=== PATIENT | male | born 1985 | race Caucasian/White ===

== ENCOUNTER 2017-06-05 20:24 | Emergency (ER) | payer OTHER ==
[2017-06-05] MEDS: AMOXICILLIN 500 MG CAP PO (21:55)
== END 2017-06-05 22:05 | disposition home or self-care (01) ==
LOC: M ED 20:24
DX: J02.0 Streptococcal pharyngitis (principal)
CPT/HCPCS: 87880

== ENCOUNTER → 2019-04-16 | Outpatient (REF) | payer OTHER ==
[~2019-04-16] MED LIST: AMOX500T PO
== END ==
LOC: M LAB REF 21:48
PROVIDERS: ATTEND Physician Assistant
DX: J02.9 Acute pharyngitis, unspecified (principal)

== ENCOUNTER → 2019-05-30 | Outpatient (REF) | payer OTHER ==
[2019-05-30 17:31] LABS: BASO # 0.1 10^3/uL (0.0-0.2); BASO % 0.7 % (0.0-1.0); EOS # 0.1 10^3/uL (0.0-0.5); HEMATOCRIT 48.3 % (42.0-52.0); HEMOGLOBIN 15.7 g/dl (13.5-17.5); LYMPH # 2.7 10^3/uL (1.5-5.0); LYMPH % 33.5 % (24.0-44.0); MEAN CORPUSCULAR HEMOGLOBIN 28.6 pg (27.0-33.0); MEAN CORPUSCULAR HGB CONC 32.5 g/dl (32.0-36.5); MONO # 0.6 10^3/uL (0.0-0.8); MONO % 7.4 % (0.0-5.0); NEUTROPHILS # 4.6 10^3/uL (1.5-8.5); NEUTROPHILS % 56.9 % (36.0-66.0); PLATELET COUNT, AUTOMATED 369 10^3/uL (150-450); RED BLOOD COUNT 5.49 10^6/uL (4.30-6.10); WHITE BLOOD COUNT 8.2 10^3/uL (4.0-10.0)
[2019-05-30 17:32] LABS: ALBUMIN 4.2 GM/DL (3.2-5.2); ALT/SGPT 91 U/L (12-78); BILIRUBIN,TOTAL 0.6 MG/DL (0.2-1.0); BLOOD UREA NITROGEN 12 MG/DL (7-18); CALCIUM LEVEL 9.2 MG/DL (8.5-10.1); CARBON DIOXIDE LEVEL 29 MEQ/L (21-32); CHLORIDE LEVEL 105 MEQ/L (98-107); CHOLESTEROL LEVEL 223 MG/DL (<200); CHOLESTEROL RISK RATIO 5.068 (<5); CREATININE FOR GFR 1.01 MG/DL (0.70-1.30); GLOMERULAR FILTRATION RATE > 60.0 (>60); GLUCOSE, FASTING 81 MG/DL (70-100); HDL CHOLESTEROL 44 MG/DL (>40); LDL CHOLESTEROL 150 MG/DL (<100); NON-HDL-C 179 MG/DL; POTASSIUM SERUM 4.8 MEQ/L (3.5-5.1); SODIUM LEVEL 137 MEQ/L (136-145); TOTAL PROTEIN 7.9 GM/DL (6.4-8.2); TRIGLYCERIDES LEVEL 143 MG/DL (<150)
== END ==
LOC: M LAB REF 16:54
PROVIDERS: ATTEND Family Medicine
DX: I10 Essential (primary) hypertension (principal)

== ENCOUNTER 2019-06-16 02:32 | Emergency (ER) | payer OTHER ==
[~2019-06-16] VITALS: Ht 165.1 cm; Wt 107.8 kg
[2019-06-16 02:32] VITALS: BP 142/94
[2019-06-16] MEDS ORDERED: ACET-683 PO (02:35)
[2019-06-16] MEDS ORDERED: TETRACAINE 0.5% OPHTH SOLN 4ML OS ONE (03:15)
[2019-06-16] MEDS ORDERED: KETOROLAC 0.5% OPHTH SOLN OS ONE (04:00)
[2019-06-16] MEDS ORDERED: TOBRAMYCIN 0.3% OPHTH SOLN 5 ML OS ONE (04:00)
[2019-06-16] MEDS ORDERED: ERYTHROMYCIN OPHTH OINT OS ONE (04:00)
== END 2019-06-16 04:11 | disposition home or self-care (01) ==
LOC: M ED 02:32
DX: H10.9 Unspecified conjunctivitis (principal)

== ENCOUNTER → 2019-11-03 | Outpatient (REF) | payer OTHER ==
[~2019-11-03] MED LIST changes: +ACET-683 PO; +NAPR-837 PO
== END ==
LOC: M LAB REF 20:00
PROVIDERS: ATTEND Physician Assistant Medical
DX: R07.0 Pain in throat (principal)

== ENCOUNTER 2019-11-27 16:49 | Emergency (ER) | payer OTHER ==
[~2019-11-27] VITALS: Ht 165.1 cm; Wt 106.2 kg
[~2019-11-27 16:49] MED LIST changes: -NAPR-837 PO
[2019-11-27 17:51] LABS: BASO # 0.1 10^3/uL (0.0-0.2); BASO % 0.5 % (0.0-1.0); EOS # 0.3 10^3/uL (0.0-0.5); EOS % 2.9 % (0.0-3.0); HEMOGLOBIN 14.8 g/dl (13.5-17.5); LYMPH # 3.3 10^3/uL (1.5-5.0); LYMPH % 31.6 % (24.0-44.0); MEAN CORPUSCULAR HEMOGLOBIN 28.8 pg (27.0-33.0); MEAN CORPUSCULAR HGB CONC 32.9 g/dl (32.0-36.5); MEAN CORPUSCULAR VOLUME 87.5 fl (80.0-96.0); MONO % 9.2 % (0.0-5.0); NEUTROPHILS # 5.7 10^3/uL (1.5-8.5); NEUTROPHILS % 55.2 % (36.0-66.0); PLATELET COUNT, AUTOMATED 341 10^3/uL (150-450); RED BLOOD COUNT 5.14 10^6/uL (4.30-6.10); WHITE BLOOD COUNT 10.4 10^3/uL (4.0-10.0)
[2019-11-27 18:13] LABS: ALT/SGPT 57 U/L (12-78); BILIRUBIN,DIRECT < 0.1 MG/DL (0.0-0.2); BILIRUBIN,TOTAL 0.4 MG/DL (0.2-1.0); BLOOD UREA NITROGEN 13 MG/DL (7-18); CALCIUM LEVEL 9.1 MG/DL (8.5-10.1); CARBON DIOXIDE LEVEL 26 MEQ/L (21-32); CHLORIDE LEVEL 107 MEQ/L (98-107); CREATININE FOR GFR 1.12 MG/DL (0.70-1.30); GLOMERULAR FILTRATION RATE > 60.0 (>60); GLUCOSE, FASTING 79 MG/DL (70-100); LIPASE 99 U/L (73-393); POTASSIUM SERUM 4.5 MEQ/L (3.5-5.1); SODIUM LEVEL 140 MEQ/L (136-145); TOTAL PROTEIN 7.3 GM/DL (6.4-8.2)
[2019-11-27] MEDS ORDERED: NAPR-837 PO (19:43)
[2019-11-27 19:48] VITALS: BP 137/89
== END 2019-11-27 19:50 | disposition home or self-care (01) ==
LOC: M ED 16:49
DX: S39.011A Strain of muscle, fascia and tendon of abdomen, initial encounter (principal); X58.XXXA Exposure to other specified factors, initial encounter; Y92.89 Other specified places as the place of occurrence of the external cause

== ENCOUNTER → 2020-04-07 | Outpatient (REF) | payer OTHER ==
[~2020-04-07] MED LIST changes: +NAPR-837 PO
[2020-04-07 18:11] LABS: BASO # 0.1 10^3/uL (0.0-0.2); BASO % 0.5 % (0.0-1.0); EOS # 0.1 10^3/uL (0.0-0.5); EOS % 0.7 % (0.0-3.0); HEMATOCRIT 45.3 % (42.0-52.0); HEMOGLOBIN 14.8 g/dl (13.5-17.5); LYMPH # 2.1 10^3/uL (1.5-5.0); LYMPH % 21.3 % (24.0-44.0); MEAN CORPUSCULAR HEMOGLOBIN 28.5 pg (27.0-33.0); MEAN CORPUSCULAR HGB CONC 32.7 g/dl (32.0-36.5); MEAN CORPUSCULAR VOLUME 87.1 fl (80.0-96.0); MONO # 0.6 10^3/uL (0.0-0.8); NEUTROPHILS # 6.8 10^3/uL (1.5-8.5); PLATELET COUNT, AUTOMATED 386 10^3/uL (150-450); WHITE BLOOD COUNT 9.7 10^3/uL (4.0-10.0)
[2020-04-07 18:14] LABS: ALBUMIN 4.1 GM/DL (3.2-5.2); ALT/SGPT 56 U/L (12-78); BILIRUBIN,TOTAL 0.5 MG/DL (0.2-1.0); BLOOD UREA NITROGEN 9 MG/DL (7-18); CALCIUM LEVEL 9.4 MG/DL (8.5-10.1); CARBON DIOXIDE LEVEL 30 MEQ/L (21-32); CHLORIDE LEVEL 105 MEQ/L (98-107); CREATININE FOR GFR 1.02 MG/DL (0.70-1.30); GLOMERULAR FILTRATION RATE > 60.0 (>60); GLUCOSE, FASTING 76 MG/DL (70-100); LIPASE 103 U/L (73-393); POTASSIUM SERUM 4.1 MEQ/L (3.5-5.1); SODIUM LEVEL 139 MEQ/L (136-145); TOTAL PROTEIN 7.7 GM/DL (6.4-8.2)
== END ==
LOC: M LAB REF 17:28
DX: R10.13 Epigastric pain (principal)

== ENCOUNTER 2020-05-09 06:50 | Emergency (ER) | payer OTHER ==
[~2020-05-09] VITALS: Ht 165.1 cm; Wt 110.4 kg
[2020-05-09] MEDS ORDERED: KETOROLAC TROMETHAMINE 10 MG TAB PO ONE (07:35)
[2020-05-09] MEDS ORDERED: ACETAMINOPHEN 500 MG TAB PO ONE (07:35)
[2020-05-09 08:20] VITALS: BP 142/102
== END 2020-05-09 08:40 | disposition home or self-care (01) ==
LOC: M ED 06:50
DX: K08.89 Other specified disorders of teeth and supporting structures (principal)

== ENCOUNTER 2020-06-11 20:50 | Emergency (ER) | payer OTHER ==
[~2020-06-11] VITALS: Ht 165.1 cm; Wt 108.4 kg
[2020-06-11] MEDS ORDERED: IBUP80TA (21:03)
[2020-06-11] MEDS ORDERED: AMOX875T (21:03)
[2020-06-11] MEDS ORDERED: BENZOCAINE 20% GEL 9GM TUBE (ANBESOL MAX STRENGTH) TOP ONE (22:20)
[2020-06-11] MEDS ORDERED: AUGM875T28 PO (22:21)
[2020-06-11 22:24] VITALS: BP 148/78
== END 2020-06-11 22:34 | disposition home or self-care (01) ==
LOC: M ED 20:50
DX: K04.7 Periapical abscess without sinus (principal)

== ENCOUNTER → 2020-08-06 | Outpatient (CLI) | payer OTHER ==
[~2020-08-06] MED LIST changes: +AMOX875T; +AUGM875T28 PO; +IBUP80TA
== END ==
LOC: M LABSMTC 13:23
PROVIDERS: ATTEND Family Medicine
DX: Z20.822 Contact with and (suspected) exposure to COVID-19 (principal)
CPT/HCPCS: C9803; U0003

== ENCOUNTER 2020-11-11 00:46 | Inpatient (IN) | payer OTHER ==
[~2020-11-11] VITALS: Ht 165.1 cm; Wt 101.7 kg
[2020-11-11] MEDS ORDERED: ACET-683 PO (00:57)
[2020-11-11] MEDS ORDERED: ACETAMINOPHEN 325 MG TAB PO ONE (03:45)
[2020-11-11 04:22] LABS: BASO % 0.1 % (0.0-1.0); HEMATOCRIT 46.5 % (42.0-52.0); HEMOGLOBIN 15.5 g/dl (13.5-17.5); LYMPH # 0.8 10^3/uL (1.5-5.0); LYMPH % 11.7 % (24.0-44.0); MEAN CORPUSCULAR HEMOGLOBIN 28.9 pg (27.0-33.0); MEAN CORPUSCULAR HGB CONC 33.3 g/dl (32.0-36.5); MEAN CORPUSCULAR VOLUME 86.6 fl (80.0-96.0); MONO # 0.4 10^3/uL (0.0-0.8); MONO % 5.7 % (2.0-8.0); NEUTROPHILS # 5.9 10^3/uL (1.5-8.5); NEUTROPHILS % 82.2 % (36.0-66.0); PLATELET COUNT, AUTOMATED 239 10^3/uL (150-450); RED BLOOD COUNT 5.37 10^6/uL (4.30-6.10); WHITE BLOOD COUNT 7.2 10^3/uL (4.0-10.0)
[2020-11-11] MEDS ORDERED: NS 1,000 ML IV ONE (04:30)
[2020-11-11] MEDS ORDERED: ONDANSETRON 4MG/2ML VIAL IV ONE (04:30)
[2020-11-11 04:54] LABS: ALBUMIN 3.3 GM/DL (3.2-5.2); ALT/SGPT 54 U/L (12-78); BILIRUBIN,DIRECT 0.2 MG/DL (0.0-0.2); BILIRUBIN,TOTAL 0.6 MG/DL (0.2-1.0); BLOOD UREA NITROGEN 9 MG/DL (7-18); CALCIUM LEVEL 8.5 MG/DL (8.5-10.1); CARBON DIOXIDE LEVEL 31 MEQ/L (21-32); CHLORIDE LEVEL 100 MEQ/L (98-107); CK-MB VALUE MASS < 1.0 NG/ML (<3.6); CPK CREATINE PHOSPHOKINASE 543 U/L (39-308); CREATININE FOR GFR 1.14 MG/DL (0.70-1.30); GLOMERULAR FILTRATION RATE > 60.0 (>60); GLUCOSE, FASTING 114 MG/DL (70-100); LIPASE 227 U/L (73-393); MB/CK RELATIVE INDEX 0.18 (< OR =4); POTASSIUM SERUM 3.7 MEQ/L (3.5-5.1); SODIUM LEVEL 137 MEQ/L (136-145); TOTAL PROTEIN 7.3 GM/DL (6.4-8.2); TROPONIN I < 0.02 NG/ML (< 0.10)
[2020-11-11 05:05] LABS: RSV AMPLIFICATION NEGATIVE (NEGATIVE)
[2020-11-11] MEDS ORDERED: methylPREDNISolone 125MG 2ML VIAL IV ONE (06:25)
--- NOTE | 2020-11-11 06:27 | REPVR ---
PROCEDURE INFORMATION: Exam: XR Chest Exam date and time: 11/11/20 (4:14am) Age: 35 years old Clinical indication: SOB TECHNIQUE: Imaging protocol: Portable CXR Views: 1 view COMPARISON: Abdomen plain films + CXR of 06/02/14 FINDINGS: Comparison is made with a frontal CXR done on 06/02/14. Suboptimal inspiratory effort. Heart size most likely is unchanged. Bilateral streaky and slightly patchy opacities. Patchy changes are most prominent near the left lung base. Mild elevation of left hemidiaphragm. No significant pleural effusions. No pneumothorax. Gaseous distention of the stomach. IMPRESSION: Streaky and patchy pulmonary opacities, with patchy changes most prominent at the left lung base. No dense consolidation. No pleural effusions. Suspect bilateral infectious pneumonia. Electronically signed by: Vero Bolton On 11/11/2020 06:27:32 AM
[2020-11-11] MEDS ORDERED: cefTRIAXone SOD 2 GM in D5W MINI-BAG PLUS 50 ML IV ONE (06:35)
--- NOTE | 2020-11-11 06:44 | ECGEPIP ---
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
[2020-11-11] MEDS ORDERED: ACET-897 PO (06:48)
[2020-11-11] MEDS ORDERED: IBUP1TAB7 PO (06:48)
[2020-11-11] MEDS ORDERED: PEPT262S PO (06:48)
[2020-11-11] MEDS ORDERED: HOME MED LIST COMPLETE! XX SCH (06:50)
[2020-11-11] MEDS ORDERED: ONDANSETRON 4MG/2ML VIAL IV PRN (07:40)
[2020-11-11] MEDS ORDERED: ACETAMINOPHEN TAB 650MG DOSE (2X325MG) PO PRN (07:40)
[2020-11-11 08:11] LABS: VENOUS BASE EXCESS 0.6 (-2.0-2.0); VENOUS PARTIAL PRESSURE CO2 39.5 mmHg (38.0-50.0); VENOUS PARTIAL PRESSURE O2 76.7 mmHg (30.0-50.0); VENOUS PH 7.419 UNITS (7.330-7.430); VENOUS STANDARD HCO3 24.9 MEQ/L; VENOUS TOTAL CO2 26.2 MEQ/L (24.0-28.0)
[2020-11-11 08:12] LABS: INR 1.09; PROTHROMBIN TIME 14.5 SECONDS (12.7-14.5)
[2020-11-11 08:13] LABS: PARTIAL THROMBOPLASTIN TIME 37.8 SECONDS (25.9-37.0)
[2020-11-11 08:16] LABS: C REACTIVE PROTEIN QUANTITATIV 3.29 MG/DL (0.00-0.30); D-DIMER QUANT 385.79 ng/ml (<500)
[2020-11-11 10:20] VITALS: BP 121/72
[2020-11-11] MEDS: dexameTHASONE 4 MG/ML 1ML VIAL (J1100 PER 1MG) IV SCH (10:26)
[2020-11-11] MEDS: ENOXAPARIN 40MG/0.4ML SYRINGE (J1650 PER 10MG) SC SCH (10:27)
[2020-11-11] MEDS: ASPIRIN 81MG ENTERIC TABLET PO SCH (10:27)
[2020-11-11] MEDS ORDERED: CALCIUM CARBONATE 500 MG CHEW U/D PO PRN (10:55)
[2020-11-11] MEDS ORDERED: INFLUENZA QUADRIVALENT PF VACCINE 0.5ML SYRINGE IM SCH (10:55)
--- NOTE | 2020-11-11 11:33 | HPEPDOC ---
General Date of Admission Nov 11, 2020 at 07:33 Date of Service: Nov 11, 2020 Chief Complaint The patient is a 35-year-old male admitted with a reason for visit of Covid-19, Hypoxia. History of Present Illness Mr. Garner is a healthy 35-year-old male who is here with hypoxia secondary to Covid pneumonia. He is not vaccinated for Covid. Last week, his tested Covid positive and they were quantitated since last Sunday. He thinks that his is where he got his Covid. He is not sure how his caught Covid. But since last Sunday he has had a fever. Last Sunday he said that he lost his sense of taste and was unable to get much sleep. Last night, he had nausea with dry heaving. His abdomen hurts because of the dry heaving. Throughout the week, he has been having shortness of breath on exertion. He has a dry cough. Patient came in for evaluation. When he first got here, he had a temperature of 101.9 and initially required 4 L of oxygen. Chest x-ray demonstrates bilateral infectious pneumonia. Patient will be admitted for hypoxia secondary to Covid pneumonia. Home Medications Scheduled PRN Acetaminophen (Tylenol Extra Strength) 500 Mg Tablet, 1,000 MG PO Q6H PRN for FEVER, (Reported) Bismuth Subsalicylate (Pepto-Bismol) 262 Mg/15 Ml Oral.susp, 30 ML PO Q4H PRN for NAUSEA, (Reported) Ibuprofen (Ibuprofen) 800 Mg Tablet, 800 MG PO TID PRN for FEVER, (Reported) Allergies Coded Allergies: No Known Allergies (Unverified , 06/05/17) Past Medical History Medical History 1. Prehypertension Surgical History 1. [place] tooth removal Family History Denies any known past medical history in parents Social History * Smoker: Denies Alcohol: Denies Drugs: denies A-FIB/CHADSVASC A-FIB History Current/History of A-Fib/PAF?: No Review of Systems Constitutional: Reports: Fever Eyes: Denies: Vision change ENT: Reports: Other Symptoms (Loss of taste) Skin: Denies: Rash Pulmonary: Reports: Dyspnea, Cough Cardiovascular: Denies: Chest Pain Gastrointestinal: Reports: Nausea, Vomiting, Abdominal Pain (From dry heaving) Genitourinary: Denies: Dysuria Hematologic: Denies: Bruising Neurological: Denies: Numbness Psych: Denies: Anxiety, Depression Physical Examination General Exam: Positive: Alert, Cooperative Eye Exam: Positive: EOMI; Negative: Sclera icteric ENT Exam: Positive: Atraumatic Neck Exam: Positive: Supple Chest Exam: Positive: Diminished Heart Exam: Positive: Rate Normal, Regular Rhythm Abdomen Exam: Positive: Normal bowel sounds, Soft; Negative: Tenderness Extremity Exam: Negative: Edema Neuro Exam: Positive: Normal Speech Psych Exam: Positive: Mental status NL, Mood NL Vital Signs Vital Signs Date Time Temp Pulse Resp B/P (MAP) Pulse Ox O2 Delivery O2 Flow Rate FiO2 11/11/20 10:20 96.1 80 18 121/72 (88) 95 Nasal Cannula 2.0 Laboratory Data Labs 24H Laboratory Tests 2 11/11/20 04:06: Immature Granulocyte % (Auto) 0.3, Neutrophils (%) (Auto) 82.2H, Lymphocytes (%) (Auto) 11.7L, Monocytes (%) (Auto) 5.7, Eosinophils (%) (Auto) 0.0, Basophils (%) (Auto) 0.1, Neutrophils # (Auto) 5.9, Lymphocytes # (Auto) 0.8L, Monocytes # (Auto) 0.4, Eosinophils # (Auto) 0.0, Basophils # (Auto) 0.0, Nucleated Red Blood Cells % (auto) 0.0, Anion Gap 6L, Glomerular Filtration Rate > 60.0, Lactic Acid Level 1.8, Calcium Level 8.5, Total Bilirubin 0.6, Direct Bilirubin 0.2, Aspartate Amino Transf (AST/SGOT) 50H, Alanine Aminotransferase (ALT/SGPT) 54, Alkaline Phosphatase 59, Total Creatine Kinase 543H, Creatine Kinase MB < 1.0, Creatine Kinase MB Relative Index 0.18, Troponin I < 0.02, Total Protein 7.3, Albumin 3.3, Albumin/Globulin Ratio 0.8, Lipase 227, Coronavirus (COVID- 19)(PCR) POSITIVEA, Influenza Type A (RT-PCR) NEGATIVE, Influenza Type B (RT- PCR) NEGATIVE, Respiratory Syncytial Virus (PCR) NEGATIVE 11/11/20 07:16: Prothrombin Time 14.5H, Prothromb Time International Ratio 1.09, Activated Partial Thromboplast Time 37.8, Fibrinogen 476H, D-Dimer, Quantitative 385.79, Blood Gas Bicarbonate Standard 24.9, Venous Blood pH 7.419, Venous Blood Partial Pressure CO2 39.5, Venous Blood Partial Pressure O2 76.7H, Venous Blood Total Carbon Dioxide 26.2, Venous Blood HCO3 25.0, Venous Blood Oxygen Saturation 95.0H, Venous Blood Base Excess 0.6, Ferritin 686H, Lactate Dehydrogenase 294H, C-Reactive Protein, Quantitative 3.29H, DU-Uwr-[id number]-Type Natriuretic Peptide 7 11/11/20 07:31: POC Lactate (Misc Panel) 0.58 11/11/20 10:07: CBC/BMP Laboratory Tests 11/11/20 04:06 Microbiology Microbiology 11/11/20 Blood Culture, Received Pending 11/11/20 Blood Culture, Received Pending 11/11/20 Blood Culture, Received Pending Assessment/Plan Mr. Garner is a healthy 35-year-old male who is here with hypoxia secondary to Covid pneumonia. Patient is not vaccinated. He suspects that his is his source of Covid. He is not sure how his caught Covid. Since he is hypoxic, will start him on IV steroids and remdesivir. Since his chest x-ray suggests pneumonia, will start patient on ceftriaxone and azithromycin. De- escalation will depend on procalcitonin Plan / VTE VTE Prophylaxis Ordered?: Yes Plan Plan 1. Hypoxia secondary to Covid pneumonia Patient unvaccinated Symptoms started about a week ago On admission patient was hypoxic requiring 4 L of oxygen IV remdesivir and IV steroids IV ceftriaxone and IV azithromycin day 1 De-escalation depends on procalcitonin results 2. Nausea and vomiting Possibly secondary to Covid infection Supportive care Zofran as needed We will add on Protonix 3. DVT prophylaxis Aspirin and Lovenox Disposition: Pending improvement in oxygen status MANUEL PEÑA DO Nov 11, 2020 11:33
[2020-11-11] MEDS: PANTOPRAZOLE 40MG TAB (PROTONIX) PO SCH (11:59)
[2020-11-11 12:00] VITALS: O2SAT 95
[2020-11-11] MEDS ORDERED: REMDESIVIR 200 MG in NS 250 ML IV ONE (12:00)
[2020-11-11] MEDS: AZITHROMYCIN INJ 500 MG, VIAL MATE ADAPTER 1 EACH in NS 250 ML IV SCH (12:00)
[2020-11-11] MEDS ORDERED: SODIUM CHLORIDE 0.9% INJ 10 ML SYR IV ONE (14:00)
[2020-11-11 14:11] LABS: APPEARANCE, URINE HAZY (CLEAR); BACTERIA, URINE AUTO NEGATIVE (NEGATIVE); BILIRUBIN, URINE AUTO NEGATIVE (NEGATIVE); BLOOD, URINE BLOOD NEGATIVE (NEGATIVE); COLOR, URINE YELLOW (YELLOW); GLUCOSE, URINE (UA) AUTO NEGATIVE (NEGATIVE); KETONE, URINE AUTO TRACE mg/dL (NEGATIVE); LEUKOCYTE ESTERASE, URINE AUTO NEGATIVE (NEGATIVE); MUCUS, URINE SMALL (NEGATIVE); NITRITE, URINE AUTO NEGATIVE (NEGATIVE); PROTEIN, URINE AUTO 2+ mg/dL (NEGATIVE); RBC, URINE AUTO 1 /HPF (0-3); SPECIFIC GRAVITY URINE AUTO 1.019 (1.002-1.035); SQUAMOUS EPITHELIAL CELL UR AU 0 /HPF (0-6); UROBILINOGEN, URINE AUTO 0.2 mg/dL (0.0-2.0); WBC, URINE AUTO 3 /HPF (0-3)
[2020-11-11 16:00] VITALS: BP 120/64; O2SAT 95
[2020-11-11] MEDS ORDERED: CEPACOL LOZENGE PO PRN (19:00)
[2020-11-11 20:00] VITALS: O2SAT 92
[2020-11-11] MEDS: BENZONATATE 100 MG CAP PO SCH (20:11)
[2020-11-11] MEDS: guaiFENesin ER 600 MG TAB PO SCH (20:11)
[2020-11-12] VITALS (8 sets, daily range): BP systolic 105–118; BP diastolic 55–67; O2SAT 89–93
[2020-11-12 06:08] LABS: BASO % 0.1 % (0.0-1.0); HEMATOCRIT 40.9 % (42.0-52.0); HEMOGLOBIN 13.8 g/dl (13.5-17.5); LYMPH % 9.8 % (24.0-44.0); MEAN CORPUSCULAR HEMOGLOBIN 29.2 pg (27.0-33.0); MEAN CORPUSCULAR HGB CONC 33.7 g/dl (32.0-36.5); MEAN CORPUSCULAR VOLUME 86.7 fl (80.0-96.0); MONO # 0.6 10^3/uL (0.0-0.8); MONO % 5.7 % (2.0-8.0); NEUTROPHILS # 8.9 10^3/uL (1.5-8.5); NEUTROPHILS % 83.8 % (36.0-66.0); PLATELET COUNT, AUTOMATED 270 10^3/uL (150-450); RED BLOOD COUNT 4.72 10^6/uL (4.30-6.10); WHITE BLOOD COUNT 10.6 10^3/uL (4.0-10.0)
[2020-11-12 06:29] LABS: ALBUMIN 2.6 GM/DL (3.2-5.2); ALT/SGPT 43 U/L (12-78); BILIRUBIN,DIRECT < 0.1 MG/DL (0.0-0.2); BILIRUBIN,TOTAL 0.3 MG/DL (0.2-1.0); BLOOD UREA NITROGEN 11 MG/DL (7-18); CALCIUM LEVEL 8.3 MG/DL (8.5-10.1); CARBON DIOXIDE LEVEL 27 MEQ/L (21-32); CHLORIDE LEVEL 106 MEQ/L (98-107); CREATININE FOR GFR 0.87 MG/DL (0.70-1.30); GLOMERULAR FILTRATION RATE > 60.0 (>60); GLUCOSE, FASTING 176 MG/DL (70-100); MAGNESIUM LEVEL 2.6 MG/DL (1.8-2.4); POTASSIUM SERUM 4.3 MEQ/L (3.5-5.1); SODIUM LEVEL 138 MEQ/L (136-145); TOTAL PROTEIN 6.9 GM/DL (6.4-8.2)
[2020-11-12] MEDS ORDERED: cefTRIAXone SOD 1 GM in D5W MINI-BAG PLUS 50 ML IV SCH (08:00)
[2020-11-12] MEDS: ENOXAPARIN 40MG/0.4ML SYRINGE (J1650 PER 10MG) SC SCH (08:53)
[2020-11-12] MEDS: dexameTHASONE 4 MG/ML 1ML VIAL (J1100 PER 1MG) IV SCH (08:53)
[2020-11-12] MEDS: PANTOPRAZOLE 40MG TAB (PROTONIX) PO SCH (08:54)
[2020-11-12] MEDS: ASPIRIN 81MG ENTERIC TABLET PO SCH (08:54)
[2020-11-12] MEDS: BENZONATATE 100 MG CAP PO SCH ×3 (08:54→20:19)
[2020-11-12] MEDS: guaiFENesin ER 600 MG TAB PO SCH ×2 (08:54→20:19)
[2020-11-12] MEDS: AZITHROMYCIN INJ 500 MG, VIAL MATE ADAPTER 1 EACH in NS 250 ML IV SCH (12:59)
--- NOTE | 2020-11-12 13:44 | IPNPDOC ---
Subjective Date Seen The patient was seen on 11/12/20. Subjective Chief Complaint/HPI Mr. Garner is a healthy 35-year-old male who is here with hypoxia secondary to Covid pneumonia. This morning he denies any chest pain or shortness of breath. His oxygen requirements is currently 2 liters. Objective Physical Examination General Exam: Positive: Alert, Cooperative Eye Exam: Positive: EOMI; Negative: Sclera icteric ENT Exam: Positive: Atraumatic Neck Exam: Positive: Supple Chest Exam: Positive: Diminished Heart Exam: Positive: Rate Normal, Regular Rhythm Abdomen Exam: Positive: Normal bowel sounds, Soft; Negative: Tenderness Extremity Exam: Negative: Edema Neuro Exam: Positive: Normal Speech Psych Exam: Positive: Mental status NL, Mood NL Assessment /Plan Assessment Mr. Garner is a healthy 35-year-old male who is here with hypoxia secondary to Covid pneumonia. Patient is not vaccinated. He suspects that his is his source of Covid. He is not sure how his caught Covid. Since he is hypoxic, will start him on IV steroids and remdesivir. Since his chest x-ray suggests pneumonia, will start patient on ceftriaxone and azithromycin. Procalcitonin was negative. Discontinued antibiotics Plan/VTE VTE Prophylaxis Ordered?: Yes Plan 1. Hypoxia secondary to Covid pneumonia Patient unvaccinated Symptoms started about a week ago On admission patient was hypoxic requiring 4 L of oxygen. Patient currently on 2 L of oxygen IV remdesivir and IV steroids Procalcitonin negative, antibiotics discontinued 2. Nausea and vomiting Possibly secondary to Covid infection Supportive care Zofran as needed Continue Protonix 3. DVT prophylaxis Aspirin and Lovenox Disposition: Pending improvement in oxygen status VS, I&O, 24H, [facility] Vital Signs/I&O Vital Signs Date Time Temp Pulse Resp B/P (MAP) Pulse Ox O2 Delivery O2 Flow Rate FiO2 11/12/20 09:00 2.0 11/12/20 08:20 96.4 62 17 118/57 (77) 88 Nasal Cannula I&O- Last 24 Hours up to 6 AM 11/12/20 06:00 Intake Total 1315 ml Output Total 300 ml Balance 1015 ml Laboratory Data 24H LABS Laboratory Tests 2 11/11/20 13:53: Urine Color YELLOW, Urine Appearance HAZY, Urine pH 6.0, Urine Specific [place] 1.019, Urine Protein 2+H, Urine Glucose (Auto)(UA) NEGATIVE, Urine Ketones (Auto) TRACEH, Urine Blood NEGATIVE, Urine Nitrite NEGATIVE, Urine Bilirubin NEGATIVE, Urine Urobilinogen 0.2, Urine Leukocyte Esterase (Auto) NEGATIVE, Urine WBC (Auto) 3, Urine RBC (Auto) 1, Urine Hyaline Casts (Auto) 0, Urine Bacteria (Auto) NEGATIVE, Urine Squamous Epithelial Cells 0, Urine Mucus (Auto) SMALL, Urine Sperm (Auto) 11/12/20 05:34: Immature Granulocyte % (Auto) 0.6, Neutrophils (%) (Auto) 83.8H, Lymphocytes (%) (Auto) 9.8L, Monocytes (%) (Auto) 5.7, Eosinophils (%) (Auto) 0.0, Basophils (%) (Auto) 0.1, Neutrophils # (Auto) 8.9H, Lymphocytes # (Auto) 1.0L, Monocytes # (Auto) 0.6, Eosinophils # (Auto) 0.0, Basophils # (Auto) 0.0, Nucleated Red Blood Cells % (auto) 0.0, Anion Gap 5L, Glomerular Filtration Rate > 60.0, Ca lcium Level 8.3L, Magnesium Level 2.6H, Total Bilirubin 0.3, Direct Bilirubin < 0.1, Aspartate Amino Transf (AST/SGOT) 34, Alanine Aminotransferase (ALT/SGPT) 43, Alkaline Phosphatase 49, Total Protein 6.9, Albumin 2.6#L, Albumin/Globulin Ratio 0.6 CBC/BMP Laboratory Tests 11/12/20 05:34 Microbiology Microbiology 11/11/20 Blood Culture - Preliminary, Resulted No growth after 24 hours . All specim... 11/11/20 Blood Culture - Preliminary, Resulted No growth after 24 hours . All specim... 11/11/20 Blood Culture - Preliminary, Resulted No growth after 24 hours . All specim... MANUEL PEÑA DO Nov 12, 2020 13:44
[2020-11-12] MEDS: REMDESIVIR 100 MG in NS 250 ML IV SCH (14:55)
[2020-11-12 16:10] LABS: MYCOPLASMA PNEUMONIAE IgG 690 U/mL (0-99); MYCOPLASMA PNEUMONIAE IgM <770 U/mL (0-769)
[2020-11-12] MEDS: SODIUM CHLORIDE 0.9% INJ 10 ML SYR IV SCH (16:23)
[2020-11-13] VITALS (7 sets, daily range): BP systolic 98–127; BP diastolic 60–68; O2SAT 93–96
[2020-11-13 09:05] LABS: BASO % 0.1 % (0.0-1.0); HEMATOCRIT 40.9 % (42.0-52.0); HEMOGLOBIN 13.3 g/dl (13.5-17.5); LYMPH # 0.9 10^3/uL (1.5-5.0); LYMPH % 5.6 % (24.0-44.0); MEAN CORPUSCULAR HEMOGLOBIN 29.2 pg (27.0-33.0); MEAN CORPUSCULAR HGB CONC 32.5 g/dl (32.0-36.5); MEAN CORPUSCULAR VOLUME 89.9 fl (80.0-96.0); MONO # 1.1 10^3/uL (0.0-0.8); MONO % 6.8 % (2.0-8.0); NEUTROPHILS # 14.4 10^3/uL (1.5-8.5); NEUTROPHILS % 86.2 % (36.0-66.0); PLATELET COUNT, AUTOMATED 343 10^3/uL (150-450); RED BLOOD COUNT 4.55 10^6/uL (4.30-6.10); WHITE BLOOD COUNT 16.7 10^3/uL (4.0-10.0)
[2020-11-13] MEDS: dexameTHASONE 4 MG/ML 1ML VIAL (J1100 PER 1MG) IV SCH (09:22)
[2020-11-13] MEDS: guaiFENesin ER 600 MG TAB PO SCH ×2 (09:22→20:33)
[2020-11-13] MEDS: ASPIRIN 81MG ENTERIC TABLET PO SCH (09:22)
[2020-11-13] MEDS: BENZONATATE 100 MG CAP PO SCH ×3 (09:22→20:33)
[2020-11-13] MEDS: PANTOPRAZOLE 40MG TAB (PROTONIX) PO SCH (09:22)
[2020-11-13] MEDS: ENOXAPARIN 40MG/0.4ML SYRINGE (J1650 PER 10MG) SC SCH (09:23)
[2020-11-13 09:25] LABS: INR 0.99; PROTHROMBIN TIME 13.5 SECONDS (12.7-14.5)
[2020-11-13 09:26] LABS: PARTIAL THROMBOPLASTIN TIME 30.9 SECONDS (25.9-37.0)
[2020-11-13 09:41] LABS: ALBUMIN 2.6 GM/DL (3.2-5.2); ALT/SGPT 45 U/L (12-78); BILIRUBIN,DIRECT 0.2 MG/DL (0.0-0.2); BILIRUBIN,TOTAL 0.4 MG/DL (0.2-1.0); BLOOD UREA NITROGEN 12 MG/DL (7-18); CARBON DIOXIDE LEVEL 31 MEQ/L (21-32); CHLORIDE LEVEL 108 MEQ/L (98-107); CPK CREATINE PHOSPHOKINASE 193 U/L (39-308); CREATININE FOR GFR 0.86 MG/DL (0.70-1.30); FERRITIN 536 NG/ML (26-388); GLOMERULAR FILTRATION RATE > 60.0 (>60); GLUCOSE, FASTING 135 MG/DL (70-100); LDH LACTATE DEHYDROGENASE 314 U/L (87-241); MAGNESIUM LEVEL 2.5 MG/DL (1.8-2.4); NT-PRO BNP 406 PG/ML (<125); POTASSIUM SERUM 4.6 MEQ/L (3.5-5.1); SODIUM LEVEL 143 MEQ/L (136-145); TOTAL PROTEIN 5.9 GM/DL (6.4-8.2); TROPONIN I < 0.02 NG/ML (< 0.10)
--- NOTE | 2020-11-13 11:53 | IPNPDOC ---
Subjective Date Seen The patient was seen on 11/13/20. Subjective Chief Complaint/HPI Mr. Garner is a healthy 35-year-old male who is here with hypoxia secondary to Covid pneumonia. Overnight, patient's oxygen requirement increased to 5L. Patient tells me that he sneezed a few times last night and had to take time to catch his breath. Patient may also have a component of FRANCESCA. Otherwise, this morning, he denies any chest pain or dyspnea. Objective Physical Examination General Exam: Positive: Alert, Cooperative Eye Exam: Positive: EOMI; Negative: Sclera icteric ENT Exam: Positive: Atraumatic Neck Exam: Positive: Supple Chest Exam: Positive: Diminished Heart Exam: Positive: Rate Normal, Regular Rhythm Abdomen Exam: Positive: Normal bowel sounds, Soft; Negative: Tenderness Extremity Exam: Negative: Edema Neuro Exam: Positive: Normal Speech Psych Exam: Positive: Mental status NL, Mood NL Assessment /Plan Assessment Mr. Garner is a healthy 35-year-old male who is here with hypoxia secondary to Covid pneumonia. Patient is not vaccinated. He suspects that his is his source of Covid. He is not sure how his caught Covid. I spoke with his . She thinks she got it at work, as she is exposed to people. Otherwise, will continue him on IV steroids and remdesivir since he is still hypoxic. Since procalcitonin was negative, patient's pneumonia is most likely a viral pneumonia. Plan/VTE VTE Prophylaxis Ordered?: Yes Plan 1. Hypoxia secondary to Covid pneumonia Patient unvaccinated Symptoms started about a week ago On admission patient was hypoxic requiring 4 L of oxygen. Patient currently on 2-3 L of oxygen IV remdesivir and IV steroids Procalcitonin negative, antibiotics discontinued 2. Nausea and vomiting Possibly secondary to Covid infection Supportive care Zofran as needed Continue Protonix 3. DVT prophylaxis Aspirin and Lovenox Disposition: Pending improvement in oxygen status. Wean as tolerated VS, I&O, 24H, Fishbone Vital Signs/I&O Vital Signs Date Time Temp Pulse Resp B/P (MAP) Pulse Ox O2 Delivery O2 Flow Rate FiO2 11/13/20 09:29 96.3 58 22 118/60 (79) 96 Nasal Cannula 3.0 I&O- Last 24 Hours up to 6 AM 11/13/20 06:00 Intake Total 1080 ml Output Total 450 ml Balance 630 ml Laboratory Data 24H LABS Laboratory Tests 2 11/13/20 08:18: Immature Granulocyte % (Auto) 1.3, Neutrophils (%) (Auto) 86.2H, Lymphocytes (%) (Auto) 5.6L, Monocytes (%) (Auto) 6.8, Eosinophils (%) (Auto) 0.0, Basophils (%) (Auto) 0.1, Neutrophils # (Auto) 14.4H, Lymphocytes # (Auto) 0.9L, Monocytes # (Auto) 1.1H, Eosinophils # (Auto) 0.0, Basophils # (Auto) 0.0, Nucleated Red Blood Cells % (auto) 0.0, Prothrombin Time 13.5, Prothromb Time International Ratio 0.99, Activated Partial Thromboplast Time 30.9, Fibrinogen 409, Anion Gap 4L, Glomerular Filtration Rate > 60.0, Calcium Level 8.0L, Magnesium Level 2.5H, Ferritin 536H, Total Bilirubin 0.4, Direct Bilirubin 0.2, Aspartate Amino Transf (AST/SGOT) 26, Alanine Aminotransferase (ALT/SGPT) 45, Alkaline Phosphatase 47, Lactate Dehydrogenase 314H, Total Creatine Kinase 193, Troponin I < 0.02, IZ-Dxb-M-Type Natriuretic Peptide 406H, Total Protein 5.9L, Albumin 2.6L, Albumin/Globulin Ratio 0.8, Procalcitonin <0.05 CBC/BMP Laboratory Tests 11/13/20 08:18 Microbiology Microbiology 11/11/20 Blood Culture - Preliminary, Resulted No Growth after 48 hours. All Specime... 11/11/20 Blood Culture - Preliminary, Resulted No Growth after 48 hours. All Specime... 11/11/20 Blood Culture - Preliminary, Resulted No Growth after 48 hours. All Specime... MANUEL PEÑA DO Nov 13, 2020 11:53
[2020-11-13] MEDS: REMDESIVIR 100 MG in NS 250 ML IV SCH (13:32)
[2020-11-13] MEDS: SODIUM CHLORIDE 0.9% INJ 10 ML SYR IV SCH (13:32)
[2020-11-14] VITALS: O2SAT 96
[2020-11-14 04:00] VITALS: O2SAT 95
[2020-11-14 05:43] VITALS: BP 127/77
[2020-11-14 05:56] LABS: BASO % 0.1 % (0.0-1.0); HEMATOCRIT 40.6 % (42.0-52.0); LYMPH # 1.2 10^3/uL (1.5-5.0); LYMPH % 7.8 % (24.0-44.0); MEAN CORPUSCULAR HEMOGLOBIN 28.5 pg (27.0-33.0); MONO # 1.2 10^3/uL (0.0-0.8); MONO % 8.1 % (2.0-8.0); NEUTROPHILS # 12.5 10^3/uL (1.5-8.5); PLATELET COUNT, AUTOMATED 348 10^3/uL (150-450); RED BLOOD COUNT 4.56 10^6/uL (4.30-6.10); WHITE BLOOD COUNT 15.1 10^3/uL (4.0-10.0)
[2020-11-14 06:31] LABS: BLOOD UREA NITROGEN 14 MG/DL (7-18); CALCIUM LEVEL 8.4 MG/DL (8.5-10.1); CARBON DIOXIDE LEVEL 29 MEQ/L (21-32); CHLORIDE LEVEL 108 MEQ/L (98-107); CREATININE FOR GFR 0.74 MG/DL (0.70-1.30); GLOMERULAR FILTRATION RATE > 60.0 (>60); GLUCOSE, FASTING 124 MG/DL (70-100); MAGNESIUM LEVEL 2.4 MG/DL (1.8-2.4); POTASSIUM SERUM 4.8 MEQ/L (3.5-5.1); SODIUM LEVEL 142 MEQ/L (136-145); TROPONIN I 0.02 NG/ML (< 0.10)
[2020-11-14] MEDS: ENOXAPARIN 40MG/0.4ML SYRINGE (J1650 PER 10MG) SC SCH (09:46)
[2020-11-14] MEDS: BENZONATATE 100 MG CAP PO SCH (09:46)
[2020-11-14] MEDS: ASPIRIN 81MG ENTERIC TABLET PO SCH (09:46)
[2020-11-14] MEDS: guaiFENesin ER 600 MG TAB PO SCH (09:46)
[2020-11-14] MEDS: dexameTHASONE 4 MG/ML 1ML VIAL (J1100 PER 1MG) IV SCH (09:46)
[2020-11-14] MEDS: PANTOPRAZOLE 40MG TAB (PROTONIX) PO SCH (09:46)
[2020-11-14] MEDS ORDERED: PROA1AER2 INH (11:05)
[2020-11-14] MEDS ORDERED: PRED10TA2 PO (11:05)
[2020-11-14] MEDS ORDERED: BENZ-18 PO (11:05)
--- NOTE | 2020-11-14 14:38 | ECGEPIP ---
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 Decreased heart rate compared with 11/11/2020. Electronically Signed on 11-14-2020 14:38:06 EDT by Abdirashid Castaneda
--- NOTE | 2020-11-14 17:20 | DS.PDOC ---
Discharge Summary General Date of Admission Nov 11, 2020 at 07:33 Date of Discharge Nov 14, 2020 Discharge Summary PROCEDURES PERFORMED DURING STAY: None. ADMITTING DIAGNOSES: 1. Hypoxia secondary to Covid pneumonia 2. Nausea and vomiting DISCHARGE DIAGNOSES: 1. Hypoxia secondary to Covid pneumonia 2. Nausea and vomiting COMPLICATIONS/CHIEF COMPLAINT: Covid-19, Hypoxia. HISTORY OF PRESENT ILLNESS: Mr. Garner is a healthy 35-year-old male who is here with hypoxia secondary to Covid pneumonia. He is not vaccinated for Covid. Last week, his tested Covid positive and they were quantitated since last Sunday. He thinks that his is where he got his Covid. He is not sure how his caught Covid. But since last Sunday he has had a fever. Last Sunday he said that he lost his sense of taste and was unable to get much sleep. Last night, he had nausea with dry heaving. His abdomen hurts because of the dry heaving. Throughout the week, he has been having shortness of breath on exertion. He has a dry cough. Patient came in for evaluation. When he first got here, he had a temperature of 101.9 and initially required 4 L of oxygen. Chest x-ray demonstrates bilateral infectious pneumonia. Patient will be admitted for hypoxia secondary to Covid pneumonia. HOSPITAL COURSE: Patient did well during hospitalization. Nausea improved and patient tolerated diet. Patient was on remdesivir and dexamethasone. Patient's antibiotics was discontinued since procalcitonin was negative. Today patient felt well. Denies any chest pain or shortness of breath. At room air, he saturated 92%. With exertion, he saturated a 90%. He did not qualify for home oxygen. Patient felt ready for home and was discharged home today. DISCHARGE MEDICATIONS: Please see below. ALLERGIES: Please see below. PHYSICAL EXAMINATION ON DISCHARGE: VITAL SIGNS: Please see below. GENERAL: Comfortable, in no apparent distress. HEENT: Head normocephalic/atraumatic, EOMI, sclera clear. NECK: Supple. RESPIRATORY: Lungs clear to auscultation bilaterally. CARDIOVASCULAR: Regular rate and rhythm. ABDOMEN: Soft, nontender, no guarding or rebound tenderness. Normal bowel sounds. MUSCLE SKELETAL: Muscle strength 5/5 in all extremities. NEUROLOGICAL: CN 312 grossly intact, no focal deficits noted. PSYCHOLOGICAL: Normal mood and affect LABORATORY DATA: Please see below. IMAGING: Radiologist interpretation Chest x-ray Streaky and patchy pulmonary opacities, with patchy changes most prominent at the left lung base. No dense consolidation. No pleural effusions. Suspect bilateral infectious pneumonia. PROGNOSIS: Good ACTIVITY: As tolerated. DIET: As tolerated DISCHARGE PLAN: Home DISPOSITION: 01 Home, Self-Care. DISCHARGE INSTRUCTIONS: 1. Please follow-up with your PCP within 1 week 2. Please follow instructions for prednisone taper 3. I have sent albuterol and benzonatate to your pharmacy DISCHARGE CONDITION: Stable. Potential discharge planning, discharge summary, medication reconciliation: 35 minutes Vital Signs/I&Os Vital Signs Date Time Temp Pulse Resp B/P (MAP) Pulse Ox O2 Delivery O2 Flow Rate FiO2 11/14/20 10:48 91 Room Air 11/14/20 08:00 2.0 11/14/20 05:43 97.4 40 22 127/77 (94) I&O- Last 24 Hours up to 6 AM 11/14/20 06:00 Intake Total 840 ml Output Total 675 ml Balance 165 ml Laboratory Data Labs 24H Laboratory Tests 2 11/14/20 05:41: Immature Granulocyte % (Auto) 1.0, Neutrophils (%) (Auto) 83.0H, Lymphocytes (%) (Auto) 7.8L, Monocytes (%) (Auto) 8.1H, Eosinophils (%) (Auto) 0.0, Basophils (%) (Auto) 0.1, Neutrophils # (Auto) 12.5H, Lymphocytes # (Auto) 1.2L, Monocytes # (Auto) 1.2H, Eosinophils # (Auto) 0.0, Basophils # (Auto) 0.0, Nucleated Red Blood Cells % (auto) 0.0, Anion Gap 5L, Glomerular Filtration Rate > 60.0, Calcium Level 8.4L, Magnesium Level 2.4, Troponin I 0.02 CBC/BMP Laboratory Tests 11/14/20 05:41 Microbiology Microbiology 11/11/20 Blood Culture - Preliminary, Resulted No Growth after 72 hours. All specime... 11/11/20 Blood Culture - Preliminary, Resulted No Growth after 72 hours. All specime... 11/11/20 Blood Culture - Preliminary, Resulted No Growth after 72 hours. All specime... Discharge Medications Scheduled Benzonatate (Benzonatate) 100 Mg Capsule, 100 MG PO TID Prednisone (Prednisone) 10 Mg Tablet, 10 MG PO TAPER Take 4 tabs daily x 3 days, then 3 tabs daily x 3 days, then 2 tabs daily x 3 days, then 1 tab daily x 3 days and stop Scheduled PRN Acetaminophen (Tylenol Extra Strength) 500 Mg Tablet, 1,000 MG PO Q6H PRN for FEVER, (Reported) Albuterol Sulfate (Proair Respiclick) 90 Mcg Aer.pow.ba, 2 PUFF INH Q6HP PRN for shortness of breath Bismuth Subsalicylate (Pepto-Bismol) 262 Mg/15 Ml Oral.susp, 30 ML PO Q4H PRN for NAUSEA, (Reported) Ibuprofen (Ibuprofen) 800 Mg Tablet, 800 MG PO TID PRN for FEVER, (Reported) Allergies Coded Allergies: No Known Allergies (Unverified , 06/05/17) MANUEL PEÑA DO Nov 14, 2020 17:19
== END 2020-11-14 12:35 | disposition home or self-care (01) | DRG 137 ==
LOC: M ED 00:46 → M ED INP 07:33 → ENRESERV 08:35 → M ICU 10:14 → M 4MAIN 11-12 08:04
PROVIDERS: ADMIT Internal Medicine; ATTEND Internal Medicine
PROC: XW033E5 Introduction of Remdesivir Anti-infective into Peripheral Vein, Percutaneous Approach, New Technology Group 5 (ICD-10-PCS; principal; 2020-11-11)
PROC: 3E0333Z Introduction of Anti-inflammatory into Peripheral Vein, Percutaneous Approach (ICD-10-PCS; 2020-11-11)
DX: U07.1 COVID-19 (principal); J12.82 Pneumonia due to coronavirus disease 2019; R09.02 Hypoxemia; R11.2 Nausea with vomiting, unspecified

== ENCOUNTER 2020-11-15 19:17 | Emergency (ER) | payer OTHER ==
[~2020-11-15] VITALS: Ht 165.1 cm; Wt 100.9 kg
[~2020-11-15 19:17] MED LIST changes: +ACET-897 PO; +BENZ-18 PO; +IBUP1TAB7 PO; +PEPT262S PO; +PRED10TA2 PO; +PROA1AER2 INH
[2020-11-15 22:56] VITALS: O2SAT 91
--- NOTE | 2020-11-15 23:02 | REPVR ---
PROCEDURE INFORMATION: Exam: XR Chest Exam date and time: 11/15/2020 9:56 PM Age: 35 years old Clinical indication: Shortness of breath; Additional info: Coronavirus workup TECHNIQUE: Imaging protocol: XR of the chest. Views: 1 view. COMPARISON: CR PORTABLE CHEST X-RAY 11/11/2020 4:10 AM FINDINGS: Lungs: Degree of inflation of the lungs is normal. No evidence of pulmonary edema. Multifocal ill-defined bilateral lung opacities suggest pneumonia. No suspicious parenchymal lung mass. Pleural spaces: No pleural effusion or pneumothorax. Heart/Mediastinum: Heart and mediastinal contours are unremarkable. No mediastinal adenopathy or hilar mass. Bones/joints: Bony structures and extrathoracic soft tissues are unremarkable for age. Gastrointestinal tract: Stomach is distended with air IMPRESSION: Patchy bilateral multifocal lung infiltrates concerning for COVID-19 pneumonia, more confluent at the right lung base compared to the prior radiograph Electronically signed by: Demetrius Browning On 11/15/2020 23:02:08 PM
[2020-11-16 00:41] LABS: HEMATOCRIT 48.1 % (42.0-52.0); MEAN CORPUSCULAR HEMOGLOBIN 28.5 pg (27.0-33.0); MEAN CORPUSCULAR HGB CONC 32.4 g/dl (32.0-36.5); MEAN CORPUSCULAR VOLUME 87.8 fl (80.0-96.0); PLATELET COUNT, AUTOMATED 452 10^3/uL (150-450); RED BLOOD COUNT 5.48 10^6/uL (4.30-6.10)
[2020-11-16 00:48] LABS: WHITE BLOOD COUNT 17.2 10^3/uL (4.0-10.0)
[2020-11-16 00:52] LABS: HEMOGLOBIN 15.6 g/dl (13.5-17.5)
[2020-11-16 00:59] LABS: FIBRINOGEN 474 MG/DL (268-480); INR 1.09; PARTIAL THROMBOPLASTIN TIME 27.6 SECONDS (25.9-37.0); PROTHROMBIN TIME 14.5 SECONDS (12.7-14.5)
[2020-11-16 01:07] LABS: ATYPICAL LYMPH 2 % (0-5); LYMPHOCYTES 15 % (16-44); MONOCYTES 1 % (0-5); MYELOCYTES 1 % (0-0); NEUTROPHILS 80 % (28-66); PLATELET ESTIMATE INCREASED (NORMAL)
[2020-11-16 01:08] LABS: POLYCHROMASIA 1+
[2020-11-16 01:09] LABS: D-DIMER QUANT < 270 ng/ml (<500)
[2020-11-16 01:13] LABS: ALBUMIN 3.1 GM/DL (3.2-5.2); ALT/SGPT 70 U/L (12-78); BILIRUBIN,TOTAL 0.4 MG/DL (0.2-1.0); BLOOD UREA NITROGEN 19 MG/DL (7-18); CALCIUM LEVEL 8.7 MG/DL (8.5-10.1); CARBON DIOXIDE LEVEL 28 MEQ/L (21-32); CHLORIDE LEVEL 105 MEQ/L (98-107); CK-MB VALUE MASS 1.3 NG/ML (<3.6); CPK CREATINE PHOSPHOKINASE 93 U/L (39-308); CREATININE FOR GFR 0.91 MG/DL (0.70-1.30); FERRITIN 578 NG/ML (26-388); GLOMERULAR FILTRATION RATE > 60.0 (>60); GLUCOSE, FASTING 153 MG/DL (70-100); LDH LACTATE DEHYDROGENASE 308 U/L (87-241); MAGNESIUM LEVEL 2.7 MG/DL (1.8-2.4); POTASSIUM SERUM 4.5 MEQ/L (3.5-5.1); SODIUM LEVEL 138 MEQ/L (136-145); TOTAL PROTEIN 7.2 GM/DL (6.4-8.2); TROPONIN I < 0.02 NG/ML (< 0.10)
[2020-11-16 02:01] VITALS: BP 126/88
--- NOTE | 2020-11-17 18:48 | ECGEPIP ---
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
== END 2020-11-16 03:16 | disposition home or self-care (01) ==
LOC: M ED 19:17
DX: R06.02 Shortness of breath (principal); U07.1 COVID-19; I10 Essential (primary) hypertension; Z79.899 Other long term (current) drug therapy

== ENCOUNTER → 2021-09-07 | Outpatient (REF) | payer OTHER | LOC: M LAB REF 12:20 | PROVIDERS: ATTEND Physician Assistant | DX: R52 Pain, unspecified (principal) ==